=== PATIENT | male | born 1960 | race Caucasian/White ===

== ENCOUNTER 2019-04-22 14:46 | Outpatient (REF) | payer SELFPAY ==
[2019-04-22 19:12] LABS: Chol HDL Ratio 5.13 mg/dL (1.0-5.00); Cholesterol 205 mg/dL (0-200); Glucose 113 mg/dL (65-115); HDL Cholesterol 40 mg/dL (60-100); LDL Cholesterol Calculated 116 mg/dL (50-129); Triglycerides 243 mg/dL (0-150)
[2019-04-22 21:26] LABS: Estmated Average Glucose 131; Hemoglobin A1C 6.2 % (4.0-6.0)
== END 2019-04-22 14:47 | disposition home or self-care (01) ==
LOC: LAB 14:46
PROVIDERS: Visit Provider Dermatology
DX: Z13.9 Encounter for screening, unspecified (principal)
CPT/HCPCS: 80061; 82947; 83036

== ENCOUNTER → 2020-04-20 09:26 | Outpatient (BNVA) | payer SELFPAY | PROVIDERS: Visit Provider Family Medicine | DX: Z13.6 Encounter for screening for cardiovascular disorders (principal) | CPT/HCPCS: 80061; 82947; 83036 ==